=== PATIENT | female | born 1930 | race Caucasian/White ===

== ENCOUNTER 2017-02-04 18:22 | Inpatient (IN) | payer MEDICARE ==
--- NOTE | ~2017-02-04 | DS ---
Discharge Summary [facility] [address] [place]. [address] NAME: PRABHJOT SHELBY : 32 STATUS : DIS IN PAT#: [id number] AGE: 86 ADM/REG DATE : 02/05/17 MR#: [id number] REPORT SERV DATE: 02/13/17 DICTATED BY: YOUSIF FIELDS DATE: 02/12/17 REPORT STATUS : Draft TRANSCRIBED BY: MODL DATE: 02/12/17 ADMISSION DATE: 02/05/2017 DISCHARGE DATE: 02/12/2017 PROCEDURES DONE: 1. On 02/04/2017, chest x-ray: Shallow inspiration with mild central venous congestion. 2. On 02/05/2017, x-ray knee: One compartment moderate osteoarthritis of the left knee involving the medial femoral tibial compartment. Moderate left knee joint effusion. No evidence of osseous traumatic injury. 3. On 02/05/2017 2D echo: Normal left ventricular size and low normal ventricular systolic function, EF of 50%. Mild left ventricular diastolic dysfunction. Right ventricle mild decreased systolic function. Moderate pulmonary hypertension with estimated right ventricular systolic pressure of 54 mmHg. Moderate biatrial enlargement. Mild atrial and tricuspid regurg. 4. On 01/29/2017, x-ray of lumbar: Chronic severe compression fractures at T11 and L2 with moderate compression fracture at T9. No definitive acute traumatic injury to the lumbar spine. It is unclear if there is a true lower lumbar, neuroforaminal narrowing on the oblique views. 5. On 02/07/2017, chest x-ray PA and lateral: Interval development of bilateral pleural and bibasilar atelectasis in the right greater than the left. 6. On 02/09/2017 chest x-ray: Bibasilar atelectasis, right greater than left. Right pleural fluid. Stable cardiomegaly. 7. On 02/09/2017, ultrasound renal: Right hydronephrosis persists, similar apparent to 05/30/2016. Right renal cortical thinning appears somewhat. Cortical thinning in the left is mild in thickness or with ageing. CONSULTATIONS: 1. Shane Kim M.D., Ph.D, F.A.C.C., for Cardiology. 2. Trevon Fonseca M.D., for Renal. 3. Joseph Huggins DO, for Ortho-Spine. 4. Ofelia Pedersen M.D., for Orthopedics. REASON FOR ADMISSION: Rapid atrial fibrillation. Please refer to Dr. Alvarez's H and P on 02/04/2017. Please refer to interim discharge summary on 02/09/2017 by nurse practitioner, Rolly Shields. HISTORY OF HOSPITAL STAY: An 86-year-old white female with past medical history of coronary artery disease status post stent, atrial fibrillation on Xarelto, compression fracture at T11 and L2, hypertension, CHF with preserved ejection fraction, EF of 50%, history of breast cancer, right hydronephrosis, presenting with atrial fibrillation with RVR. Please refer to nurse practitioner, Rolly Shields's interim discharge dated 02/09/2017. I took over care of the patient on 02/10/2017 with a discharge on 02/12/2017. Discharge Summary [address] [address] NAME: PRABHJOT SHELBY : 32 STATUS : DIS IN PAT#: [id number] AGE: 86 ADM/REG DATE : 02/05/17 MR#: [id number] REPORT SERV DATE: 02/13/17 DICTATED BY: YOUSIF FIELDS DATE: 02/12/17 REPORT STATUS : Draft TRANSCRIBED BY: BAY DATE: 02/12/17 The patient was admitted because of the rapid atrial fibrillation with RVR. Cardiology was consulted which got the patient's heart rate well controlled. The patient was transitioned to p.o. Cardizem and beta pasuqale. Unfortunately, the patient also had a right knee pain which Dr. Pedersen was consulted for further evaluation and treatment. The patient did receive an x-ray of that right knee which was negative for any acute fractures. Orthopedics as well as conservative treatment will be better served at this time. In addition, the patient was also complaining of back pain. Ortho-Spine was consulted for further eval and treatment. Again, conservative treatment was pursued at this time. More importantly, the patient did develop acute kidney injury secondary to ATN with right congenital UPJ. Dr. Fonseca was consulted for further evaluation and treatment. The patient did have elevated creatinine at the time of admission. The patient had normal or at least near baseline creatinine of 1.44; however, the creatinine continued to increase to as high as 2.83 two days prior to discharge. Renal was consulted and basically the patient's renal function was increasing secondary to ATN. Renal felt the patient could be safely discharged since the patient's creatinine has been trending down from 2.83 down on 2.66 and 2.12 on the day of discharge. Renal did recommend the patient to follow up within one to two weeks time upon discharge. DISPOSITION: The patient is feeling fine, no complaints. ACTIVITY: As tolerated. DIET: Cardiac. INSTRUCTIONS UPON DISCHARGE: 1. The patient to follow up with Cardiology within one to two weeks time. 2. The patient to follow up with Renal within one to two weeks time. MEDICATIONS UPON DISCHARGE: 1. Calcium with vitamin D 600 mg p.o. b.i.d. 2. Cardizem 180 mg p.o. daily. 3. Docusate 100 mg p.o. b.i.d. 4. Lasix 80 mg daily. 5. Lidoderm topical patch daily. 6. Xarelto 50 mg p.o. daily. 7. Ambien 2.5 mg p.o. q.h.s. 8. Lactulose 30 mL p.o. q.h.s. 9. Protonix 40 mg daily. 10.Potassium chloride 10 mEq on Thursday and Thursday. 11.Tylenol 650 mg p.o. q.4 hours p.r.n. 12.[place] 5/325 mg one tablet p.o. q.8 hours p.r.n. 13.Maalox 30 mL p.o. q.4 hours p.r.n. 14.Bisacodyl 10 mg per rectal daily p.r.n. 15.Ativan 0.5 mg p.o. q.8 hours p.r.n. 16.Milk of magnesia 30 mL p.o. daily p.r.n. 17.Nitroglycerin sublingual 0.4 mg p.r.n. 18.Zofran 4 mg p.o. q.4 hours p.r.n. Discharge Summary [facility] [address] [place]. [address] NAME: PRABHJOT SHELBY : 32 STATUS : DIS IN [facility]#: [id number] AGE: 86 ADM/REG DATE : 02/05/17 MR#: [id number] REPORT SERV DATE: 02/13/17 DICTATED BY: YOUSIF FIELDS DATE: 02/12/17 REPORT STATUS : Draft TRANSCRIBED BY: MODSebastian DATE: 02/12/17 DIAGNOSES UPON DISCHARGE: 1. Atrial fibrillation with rapid ventricular response, rate controlled on Cardizem. 2. Acute kidney injury secondary to acute tubular necrosis with right congenital ureteropelvic junction. 3. Back pain secondary to chronic compression fractures. 4. Acute on chronic heart failure with diastolic dysfunction, ejection fraction of 50%. 5. Pulmonary hypertension. 6. Left knee pain and swelling secondary to osteoarthritis. 7. Chronic debility. 8. Hypertension. 9. History of breast cancer status post resection. PEYTON/BAY Yousif Fields MD / [id number] CC: MD Viral Mukherjee MD
--- NOTE | ~2017-02-04 | CN ---
Consultation Report [place] [id number] [facility] [place]. [address] NAME: PRABHJOT SHELBY : 32 STATUS : ADM IN PAT#: [id number] AGE: 86 ADM/REG DATE : 02/05/17 MR#: [id number] REPORT SERV DATE: 02/05/17 DICTATED BY: SHANE PAREDES DATE: 02/05/17 REPORT STATUS : Draft TRANSCRIBED BY: MODL DATE: 02/05/17 CARDIOLOGY CONSULTATION DATE OF CONSULTATION: INDICATION: An 86-year-old woman with atrial fibrillation. HISTORY OF PRESENT ILLNESS: Ms. Shelby is an 86-year-old woman who is followed by Dr. Summers in [place]. She recently was hospitalized with a GI bleed in [place]. She was transferred to [facility] for rehabilitation care. She has been there for several days and reportedly has had problems with elevated heart rate there that was difficult to control. They ordered a troponin level and it was elevated and centered in the emergency room. She denies chest pain or tightness. She has no palpitations or particular dyspnea. She has had problems with atrial fibrillation for more than five years. She has a history of peripheral vascular disease and coronary artery disease, which is relatively stable, also compression fractures. She has had no lightheadedness or syncope. She does have some intermittent swelling. REVIEW OF SYSTEMS: The review of systems is as per the history of present illness. 10 other systems are negative. PAST MEDICAL HISTORY: 1. History of recent GI bleed. 2. Abdominal aortic aneurysm, status post repair. 3. Peripheral vascular disease. 4. Atrial fibrillation, chronic. 5. Hypercholesterolemia. 6. Right bundle-branch block. 7. Coronary artery disease with reported history of cardiac stenting. FAMILY HISTORY: Positive for heart disease later in life. SOCIAL HISTORY: Remote tobacco. No alcohol. ALLERGIES: CONTRAST. HOME MEDICATIONS: 1. Acetaminophen. 2. Calcium. 3. Cardizem 60 p.o. q.6. 4. Cardizem CD 180 daily. 5. Cardizem 100 daily. 6. Lasix 80 in the morning and at bedtime. Consultation Report [place] [id number] [facility] [place]. [address] NAME: PRABHJOT SHELBY : 32 STATUS : ADM IN PAT#: [id number] AGE: 86 ADM/REG DATE : 02/05/17 MR#: [id number] REPORT SERV DATE: 02/05/17 DICTATED BY: SHANE PAREDES DATE: 02/05/17 REPORT STATUS : Draft TRANSCRIBED BY: BAY DATE: 02/05/17 7. [place]. 8. Lactulose. 9. Lidoderm. 10.Ativan. 11.Milk of magnesia. 12.Nitrostat. 13.Zofran. 14.Protonix. 15.Potassium. 16.Xarelto. 17.Ambien 5 daily. PHYSICAL EXAMINATION: VITAL SIGNS: Patient is afebrile. Heart rate is 120, blood pressure is 144/60. GENERAL: The patient is pleasant, elderly white female, in no apparent distress. HEENT: Conjunctivae are anicteric, no xanthelasma, lips without cyanosis. NECK: Supple, normal JVP, carotids +2 without bruit. LUNGS: Clear to auscultation bilaterally, no wheezes, rales or rhonchi. CARDIOVASCULAR: Irregularly irregular. Normal S1, S2. ABDOMEN: Soft, nontender, nondistended, with normal bowel sounds. No hepatomegaly. EXTREMITIES: Trace lower extremity edema. NEURO/PSYCH: Alert and oriented to person, place and time. No obvious neurologic deficits. Mood and affect normal. DATA: Troponin 0.06. Creatinine is 1.38. IMPRESSION: 1. Atrial fibrillation with elevated rate. 2. Demand ischemia. No anginal symptoms. 3. History of recent GI bleed. 4. Anemia with low platelets. 5. Peripheral vascular disease. 6. Abdominal aortic aneurysm, status post repair. 7. Hypertension. 8. Hypercholesterolemia. 9. Coronary artery disease with history of coronary stenting. RECOMMENDATIONS: Ms. Shelby presents with atrial fibrillation with elevated rate. I believe she probably is in chronic atrial fibrillation and suspect she has had some change in her medicines recently, which has allowed her heart rate to rise. We get her back on Cardizem and add a beta-pasquale. This combination is usually fairly helpful to for rate control. We will continue Xarelto and use gentle diuresis to help with some of the edema. I will follow up on the echo. Consultation Report [place] [address] [address] NAME: PRABHJOT SHELBY : 32 STATUS : ADM IN PAT#: [id number] AGE: 86 ADM/REG DATE : 02/05/17 MR#: [id number] REPORT SERV DATE: 02/05/17 DICTATED BY: SHANE PAREDES DATE: 02/05/17 REPORT STATUS : Draft TRANSCRIBED BY: MODSebastian DATE: 02/05/17 WO/MODL Shane Paredes M.D., Ph.D, F.A.C.C. / [id number] CC: Barry Oneill BRIAN SHANE
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
--- NOTE | ~2017-02-04 | CN ---
Consultation Report [facility] [address] [place] [place]. [address] NAME: PRABHJOT SHELBY : 32 STATUS : ADM IN PAT#: [id number] AGE: 86 ADM/REG DATE : 02/05/17 MR#: [id number] REPORT SERV DATE: 02/08/17 DICTATED BY: JAZ FONSECA DATE: 02/08/17 REPORT STATUS : Draft TRANSCRIBED BY: MODL DATE: 02/08/17 CONSULTATION DATE OF CONSULTATION: Patient of Dr. Cass Null. REASON FOR CONSULTATION: Elevation in BUN and creatinine. 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 Becerra in 06/2016, now with progressive declining kidney function, rise in creatinine during this admission, having presented with atrial fibrillation and CHF. She may have a component of ATN related to the CHF, but in addition, she also may have progression of her CKD in the setting of a solitary functioning left kidney with nephrosclerosis. In addition, she has been on a proton pump inhibitor and whether she has a component of interstitial nephritis, both acute versus acute on chronic. PLAN: Therefore 1. Repeat a renal ultrasound to assess for persistent obstruction in the right kidney. 2. We will hold her Lasix. 3. Stop her Protonix. Will switch to Pepcid. 4. Renal diet. 5. Check a serum protein electrophoresis. 6. Check a BNP and repeat her chest x-ray to assess the volume status. HISTORY: History is obtained from the patient and records available. A very pleasant 86- year-old female, who was initially admitted here on 02/04/2016, having been hospitalized at [facility] for evaluation of a GI bleed. She was undergoing rehabilitation at [facility] when she developed atrial fibrillation with a rapid rate. On reviewing her records from [facility], she was noted to have a creatinine of 1.2 to 1.3 dating back to 01/27/2017, and on 02/02/2017, it was 1.1. On admission here to the hospital, her creatinine had escalated to a value of 1.08 and is up to 2.62 today. She has previous creatinines of 1.37 in August of last year and 0.94 in June of last year. She came in with a significant lower limb edema and biventricular heart failure in relation to atrial fibrillation. She denies any difficulty in voiding. No history of hematuria or kidney stones or anti-inflammatory drug usage. She has a history of chronic right-sided hydronephrosis. She was evaluated by Dr. Mariam zaldivar in 06/2016 prior to having an AAA stented by Dr. Gibson in 08/2016. He did a cystoscopy and diagnosed her having congenital UPJ junction obstruction, and no intervention was performed. She does have atrophy of that right kidney. She has chronic right-sided flank pain as well, but otherwise, denies any fever, chills, or recurrent urinary tract infections. PAST MEDICAL HISTORY: Includes: Consultation Report [address] [place]. [address] NAME: PRABHJOT SHELBY : 32 STATUS : ADM IN [facility]#: [id number] AGE: 86 ADM/REG DATE : 02/05/17 MR#: [id number] REPORT SERV DATE: 02/08/17 DICTATED BY: JAZ FONSECA DATE: 02/08/17 REPORT STATUS : Draft TRANSCRIBED BY: BAY DATE: 02/08/17 1. T11 and L2 fracture. 2. Coronary artery disease with previous coronary artery stenting in [place]. 3. Atrial fibrillation, apparently diagnosed five and half years ago, paroxysmal. 4. GI bleed with colonic polyps, seen by Dr. Petersen in the past. 5. Hypertension. 6. Pneumonia. 7. Recurrent shingles. 8. Congestive heart failure. 9. History of breast cancer, post-resection, hydronephrosis as described, thrombocytopenia, and lymphedema. SURGICAL HISTORY: Includes the aneurysm repair and right hip surgery. She has had breast surgery for breast cancer as described. HOME MEDICATIONS: Medications prior to her transfer here included aluminum hydroxide, calcium with vitamin D, diltiazem, docusate, furosemide 80 and 40, hydrocodone, lidocaine, Ativan, nitroglycerin, Xarelto, Ambien, Protonix, and Zofran. SOCIAL HISTORY: She is not , single, good family support. Does not smoke cigarettes. No alcohol, medication, or street drug usage. REVIEW OF SYSTEMS: As per the HPI. PHYSICAL EXAMINATION: GENERAL: She is a very pleasant 86-year-old, in no acute distress. She is lying prone. VITAL SIGNS: Showed her to have a blood pressure of 112/57, heart rate is in the 70s, afebrile. She is mildly pale, but not jaundiced. Oral mucosa is moist. No pharyngitis. NECK: Supple. No thyromegaly. No carotid bruits heard. Oral mucosa is moist. No pharyngitis. NECK: Trachea central. No carotid bruits. No thyromegaly. No cervical adenopathy noted. LUNGS: Air entry is equal bilaterally. CHEST: Clear to auscultation. [place] beats not displaced. S1-S2. No rub. ABDOMEN: Mildly distended. No hepatosplenomegaly. No tenderness or rebound. Bowel sounds normal. NEUROLOGICAL: No gross neurological deficits. Cranial nerves are intact. Muscle bulk and tone are appropriate for age. No acute arthritic findings noted. She is oriented to time, place, and person. Affect is not depressed. EXTREMITIES: She has about 1+ peripheral edema, moving all limbs spontaneously. Peripheral pulses are present in dorsalis pedis and posterior tibial, but weak. IMAGING: Chest x-ray done here initially on 02/04/2017, showed shallow inspiration and mild venous congestion. She had another chest x-ray yesterday that showed interval development of bilateral pleural effusion and atelectasis. Consultation Report [address] [place]. [address] NAME: PRABHJOT SHELBY : 32 STATUS : ADM IN [facility]#: [id number] AGE: 86 ADM/REG DATE : 02/05/17 MR#: [id number] REPORT SERV DATE: 02/08/17 DICTATED BY: JAZ FONSECA DATE: 02/08/17 REPORT STATUS : Draft TRANSCRIBED BY: MODL DATE: 02/08/17 LABORATORY WORK: Sodium 139, potassium 5.0, chloride 105, CO2 25, BUN 72, creatinine 2.62. Magnesium is 2.5. Troponin 0.06. Hemoglobin is 9.0, hematocrit 29.3, white count is 4.6, and platelet count 136,000. She has all parameters to suggest that she may be iron deficient. We will check on iron stores, and urinalysis shows no proteinuria. MG/MODL Jaz Fonseca M.D. / [id number] CC: Barry Retana BRIAN SHANE
--- NOTE | ~2017-02-04 | HP ---
History And Physical [place] [address] [facility] [place]. [address] NAME: PRABHJOT SHELBY : 32 STATUS : ADM IN [facility]#: [id number] AGE: 86 ADM/REG DATE : 02/05/17 MR#: [id number] REPORT SERV DATE: 02/07/17 DICTATED BY: CHRISTAL PALACIOS DATE: 02/06/17 REPORT STATUS : Draft TRANSCRIBED BY: MODL DATE: 02/06/17 DATE OF ADMISSION: 02/05/2017 CHIEF COMPLAINT: Left knee pain. HISTORY: An 86-year-old female who has had increasing left knee pain for many years. First reported having trouble with this about 7 years ago. She has had her hip fixed for fracture in the past intermittently using the walker and cane and uses a walker when she is outside of her home, but does not use supportive device inside the home. Her walking has been getting less of late. ALLERGIES: IVP DYE, DIATRIZOATE. MEDICATIONS: See chart. PAST MEDICAL HISTORY: Hearing loss, cataract, heart cath 1980, abdominal aortic aneurysm, CHF, AFib, arthritis, osteopenia, anemia, breast cancer in 2000, left lumpectomy in 1999, hydronephrosis. PAST SURGICAL HISTORY: Right in 2009, left breast lumpectomy in 1999, heart cath with stent may be once , cystoscopy in 2015, colonoscopy in 2012. SOCIAL HISTORY: Quit tobacco and alcohol, or illicit drug use. FAMILY HISTORY: No known anesthetic complications. REVIEW OF SYSTEMS: As above. PHYSICAL EXAMINATION: GENERAL: She is alert, minimally emaciated, oriented, very talkative, somewhat difficult historian, afebrile. VITAL SIGNS: Stable. HEENT: Atraumatic, normocephalic. NECK: Supple. CHEST: Symmetric. LUNGS: Per Medicine evaluation. ABDOMEN: Soft. EXTREMITIES: Both upper extremities and right lower extremity without acute trauma. Left knee with mild to moderate effusion. Pain with range of motion from 0 to 90. Mild valgus. SKIN: Intact compartment supple. 2+ pulses. NEURO: Sensorimotor without deficit. X-RAY: Moderately severe lateral knee DJD and a nonweightbearing x-ray. History And Physical [facility] [address] [place]. [address] NAME: PRABHJOT SHELBY : 32 STATUS : ADM IN PAT#: [id number] AGE: 86 ADM/REG DATE : 02/05/17 MR#: [id number] REPORT SERV DATE: 02/07/17 DICTATED BY: CHRISTAL PALACIOS DATE: 02/06/17 REPORT STATUS : Draft TRANSCRIBED BY: BAY DATE: 02/06/17 ASSESSMENT: Left knee DJD, moderately severe. Multiple medical problems. PLAN: I had a lengthy discussion with her, a left knee support sleeve might help, physical therapy is okay with hospitalist . I will not use anti-inflammatory medication for history of GI bleed. She is also somewhat anticoagulated, and avoid the injection of her knee at this point. I am available if and when she becomes a candidate for more intervention. WTB/BAY Ofelia Palacios M.D. / [id number] CC: Cass Null M.D.
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
--- NOTE | ~2017-02-04 | IDS ---
Interim Discharge Summary [facility] [address] [place]. [address] NAME: PRABHJOT SHELBY : 32 STATUS : ADM IN [facility]#: [id number] AGE: 86 ADM/REG DATE : 02/05/17 MR#: [id number] REPORT SERV DATE: 02/09/17 DICTATED BY: ROLLY LEE DATE: 02/09/17 REPORT STATUS : Draft TRANSCRIBED BY: MODL DATE: 02/09/17 ADMISSION DATE: 02/05/2017 DISCHARGE DATE: INTERIM DIAGNOSES: List includes: 1. Atrial fibrillation with rapid ventricular response. 2. Acute kidney injury and acute tubular necrosis in the setting of a single functioning left kidney with right hydronephrosis and a congenital right UPJ obstruction. 3. Some mild hypotension, resolved. 4. Severe back pain, chronic compression fractures. 5. Acute diastolic heart failure, pulmonary hypertension, diastolic dysfunction. 6. Left knee effusion. 7. Nausea and vomiting, seems to have resolved. 8. Chronic debility. 9. History of abdominal aortic aneurysm repair. HISTORY OF PRESENT ILLNESS: This is a very pleasant, 86-year-old, white female, who actually had been in rehab at [facility] and given her rapid tachycardia, was transferred to [facility]. Please see initial H and P of Dr. Kuldeep Alvarez. This patient was admitted to Hospitalist Service for further evaluation and treatment. CONSULTS DURING THIS ADMISSION: Include: Cardiology, Dr. Kim; Orthopedic, Dr. Pedersen; [facility], Dr. Fonseca; and Ortho Spine, Dr. Huggins. TESTING AND IMAGING DURING THIS ADMISSION: Did include: An echocardiogram that showed an ejection fraction of 50%, mild left ventricular diastolic dysfunction, moderate biatrial enlargement, mild mitral and tricuspid regurg, moderate pulmonary hypertension. The patient also had a left knee x-ray that showed a moderate left knee joint effusion and some osteoarthritis. No acute fracture. Lumbar spine x-ray showing chronic severe compression fractures at T11 and L2, moderate compression fracture at T9, noted a tentative acute traumatic injury. CONTINUATION IN THE HOSPITAL COURSE: The patient's heart rate was controlled with the help of Cardiology, initially with a Cardizem IV drip and then transitioned to p.o. Cardizem and beta-pasquale therapy, which she has tolerated well. She had the above-described echocardiogram and further imaging testing. Physical Therapy evaluated the patient and determined returning to rehab was best suited for her as well. Although, her heart rate did begin to improve and maintain some stability. She did have an increase in her creatinine and acute kidney injury, and her creatinine continued to climb despite some adjustments in her diuretics. Consultations were placed to Nephrology who ordered a renal ultrasound that did show some right hydronephrosis persisting similar to prior ultrasound in 05/2016 and some cortical thinning on the left is mild, left kidney. The patient continued to complain of back pain that was rather persistent and requested to see Dr. Huggins, whom she had seen as an outpatient and x-ray of the back as described above was performed. Dr. Huggins saw the patient in consultation, but the patient did not wish to pursue getting an MRI at this time, and this will continue with Physical Therapy. Hopefully, her kidney function will plateau Interim Discharge Summary [address] [address] NAME: PRABHJOT SHELBY : 32 STATUS : ADM IN PAT#: [id number] AGE: 86 ADM/REG DATE : 02/05/17 MR#: [id number] REPORT SERV DATE: 02/09/17 DICTATED BY: ROLLY LEE DATE: 02/09/17 REPORT STATUS : Draft TRANSCRIBED BY: BAY DATE: 02/09/17 and improve as we are continuing to follow her lab work. DISPOSITION: Current disposition is to return to [facility] and they are currently following the patient. I appreciate the help of the consultants on this patient's hospital stay. ZAYRA/BAY Rolly Lee NP / [id number] CC: Barry Retana Brain Shane
[2017-02-04 16:55] LABS: BASOPHILS 0.7 %; BASOPHILS ABSOLUTE 0.04 10/3/uL (0.0-0.16); EOSINOPHILS 7.6 %; EOSINOPHILS ABSOLUTE 0.41 10/3/uL (0.0-0.53); HEMATOCRIT 30.2 % (36.0-48.0); HEMOGLOBIN 9.3 g/dL (12.0-16.0); IMMATURE GRANULOCYTES 0.2 %; IMMATURE GRANULOCYTES ABSOLUTE 0.01 10/3/uL (0.0-0.11); LYMPHOCYTES 15.7 %; LYMPHOCYTES ABSOLUTE 0.84 10/3/uL (0.67-4.30); MEAN CORPUS HGB CONC 30.8 g/dL (32.0-36.0); MEAN CORPUSCULAR HEMOGLOB 25.9 pg (26.0-34.0); MEAN CORPUSCULAR VOLUME 84.1 fL (80-100); MEAN PLATELET VOLUME 10.9 fL (9.2-13.0); MONOCYTES ABSOLUTE 0.86 10/3/uL (0.21-1.20); NEUTROPHILS 59.8 %; PLATELET COUNT 126 10/3/uL (150-400); RBC DISTRIBUTION WIDTH 17.8 % (12.0-16.0); RED CELL COUNT 3.59 10/6/uL (4.0-5.6); WHITE BLOOD CELLS 5.4 10/3/uL (4.5-10.5)
[2017-02-04 16:56] LABS: MANUAL DIFF NO %
[2017-02-04 17:02] LABS: PARTIAL THROMBO TIME 33.7 SEC (22.5-37.2)
[2017-02-04 17:08] LABS: PROTIME (NOT ORD) 22.8 SEC (12.0-14.5)
[2017-02-04 17:11] LABS: CALCIUM, SERUM 8.6 MG/DL (8.5-10.4); CHLORIDE, SERUM 105 MMOL/L (96-112); CO2 (CARBON DIOXIDE) 27 MMOL/L (24-34); CREATININE 1.44 MG/DL (0.55-1.02); GFR AFRICAN AMERICAN 39 ML/MIN (>=60); GFR NON AFRICAN AMERICAN 33 ML/MIN (>=60); POTASSIUM, SERUM 4.2 MMOL/L (3.5-5.3); SODIUM, SERUM 143 MMOL/L (135-148)
[2017-02-04 17:13] LABS: BUN (BLOOD UREA NITROGEN) 42 MG/DL (6-23); CHEST PAIN PROFILE TAT 0 Hrs 22 Mins; GLUCOSE, SERUM 106 MG/DL (60-99); TROPONIN I 0.06 NG/ML (<0.05)
[~2017-02-04 18:22] MED LIST: AMITIZA8 MCG PO; C25 PO; CARDIZEM LA120 MG PO; CARTIA XT180 MG/24 PO; DULERA; DULERA INH; L40 PO; LIPITOR40 PO; PCET PO
[2017-02-04] MEDS ORDERED: CARD60 PO (21:11)
[2017-02-04] MEDS ORDERED: CARDCD180 PO (21:11)
[2017-02-04] MEDS ORDERED: D.O.S.100 MG PO (21:12)
[2017-02-04] MEDS ORDERED: L80 PO (21:12)
[2017-02-04] MEDS ORDERED: L40 PO (21:12)
[2017-02-04] MEDS ORDERED: LIDODERM TOP (21:13)
[2017-02-04] MEDS ORDERED: CONSTULOSE PO (21:13)
[2017-02-04] MEDS ORDERED: KDUR10 PO (21:14)
[2017-02-04] MEDS ORDERED: PROTONIX PO (21:14)
[2017-02-04] MEDS ORDERED: XARELTO15 MG PO (21:15)
[2017-02-04] MEDS ORDERED: AMB5 PO (21:15)
[2017-02-04] MEDS ORDERED: 8 HOUR650 MG PO (21:16)
[2017-02-04] MEDS ORDERED: NORCO1 TA1 PO (21:16)
[2017-02-04] MEDS ORDERED: MAALOX PO (21:17)
[2017-02-04] MEDS ORDERED: BISR PR (21:17)
[2017-02-04] MEDS ORDERED: ATV.5 PO (21:18)
[2017-02-04] MEDS ORDERED: MOMUD PO (21:18)
[2017-02-04] MEDS ORDERED: NITROSTAT0.4 MG SL (21:18)
[2017-02-04] MEDS ORDERED: ZOFRAN4 PO (21:19)
[2017-02-04] MEDS ORDERED: CALTRA600D PO (21:19)
[2017-02-05 06:19] LABS: BASOPHILS 0.6 %; BASOPHILS ABSOLUTE 0.03 10/3/uL (0.0-0.16); EOSINOPHILS 8.3 %; EOSINOPHILS ABSOLUTE 0.41 10/3/uL (0.0-0.53); HEMATOCRIT 29.9 % (36.0-48.0); IMMATURE GRANULOCYTES 0.4 %; IMMATURE GRANULOCYTES ABSOLUTE 0.02 10/3/uL (0.0-0.11); LYMPHOCYTES 15.2 %; LYMPHOCYTES ABSOLUTE 0.75 10/3/uL (0.67-4.30); MEAN CORPUS HGB CONC 30.1 g/dL (32.0-36.0); MEAN CORPUSCULAR HEMOGLOB 25.4 pg (26.0-34.0); MEAN CORPUSCULAR VOLUME 84.5 fL (80-100); MEAN PLATELET VOLUME 10.7 fL (9.2-13.0); MONOCYTES ABSOLUTE 0.74 10/3/uL (0.21-1.20); NEUTROPHILS 60.5 %; NEUTROPHILS ABSOLUTE 2.97 10/3/uL (2.02-8.40); PLATELET COUNT 125 10/3/uL (150-400); RBC DISTRIBUTION WIDTH 17.8 % (12.0-16.0); RED CELL COUNT 3.54 10/6/uL (4.0-5.6); WHITE BLOOD CELLS 4.9 10/3/uL (4.5-10.5)
[2017-02-05 06:22] LABS: MANUAL DIFF NO %
[2017-02-05 06:30] LABS: INTERNATIONAL NORMAL RATI 1.6 UNITS (-); PARTIAL THROMBO TIME 31.8 SEC (22.5-37.2)
[2017-02-05 06:31] LABS: PROTIME (NOT ORD) 19.1 SEC (12.0-14.5)
[2017-02-05 06:36] LABS: A/G RATIO 0.7 (0.7-1.9); ALBUMIN 2.6 G/DL (3.5-5.0); BUN (BLOOD UREA NITROGEN) 43 MG/DL (6-23); CALCIUM, SERUM 8.7 MG/DL (8.5-10.4); CHLORIDE, SERUM 108 MMOL/L (96-112); CO2 (CARBON DIOXIDE) 28 MMOL/L (24-34); CREATININE 1.38 MG/DL (0.55-1.02); GFR AFRICAN AMERICAN 41 ML/MIN (>=60); GFR NON AFRICAN AMERICAN 35 ML/MIN (>=60); GLOBULIN 3.7 G/DL (2.5-4.1); GLUCOSE, SERUM 92 MG/DL (60-99); POTASSIUM, SERUM 3.8 MMOL/L (3.5-5.3); SGOT(AST) 29 U/L (5-40); SGPT(ALT) 23 U/L (5-65); SODIUM, SERUM 146 MMOL/L (135-148); TOTAL BILIRUBIN 0.4 MG/DL (0-1.2); TOTAL PROTEIN 6.3 G/DL (6.0-8.5)
[2017-02-05 06:38] LABS: ALKALINE PHOSPHATASE 73 U/L (45-117); TROPONIN I 0.06 NG/ML (<0.05)
[2017-02-05 06:43] LABS: PREALBUMIN 12.8 MG/DL (17.0-43.0)
[2017-02-05 06:50] LABS: ANISOCYTOSIS 1+ (5-10/OIF) (0-5/OIF); GIANT PLATELET FEW; PLATELET ESTIMATE DEC (ADEQUATE); RBC MORPHOLOGY ABN (NORMAL)
[2017-02-05 07:22] LABS: PROCALCITONIN 0.09 ng/mL (<0.5)
[2017-02-06 05:07] LABS: BASOPHILS 0.4 %; BASOPHILS ABSOLUTE 0.02 10/3/uL (0.0-0.16); EOSINOPHILS 2.4 %; EOSINOPHILS ABSOLUTE 0.11 10/3/uL (0.0-0.53); HEMATOCRIT 30.3 % (36.0-48.0); HEMOGLOBIN 9.1 g/dL (12.0-16.0); IMMATURE GRANULOCYTES 0.2 %; IMMATURE GRANULOCYTES ABSOLUTE 0.01 10/3/uL (0.0-0.11); LYMPHOCYTES 18.8 %; LYMPHOCYTES ABSOLUTE 0.85 10/3/uL (0.67-4.30); MEAN CORPUSCULAR HEMOGLOB 25.3 pg (26.0-34.0); MEAN CORPUSCULAR VOLUME 84.2 fL (80-100); MEAN PLATELET VOLUME 10.7 fL (9.2-13.0); MONOCYTES ABSOLUTE 0.77 10/3/uL (0.21-1.20); NEUTROPHILS 61.2 %; NEUTROPHILS ABSOLUTE 2.77 10/3/uL (2.02-8.40); PLATELET COUNT 116 10/3/uL (150-400); RBC DISTRIBUTION WIDTH 17.8 % (12.0-16.0); WHITE BLOOD CELLS 4.5 10/3/uL (4.5-10.5)
[2017-02-06 05:18] LABS: CALCIUM, SERUM 8.7 MG/DL (8.5-10.4); CHLORIDE, SERUM 105 MMOL/L (96-112); CO2 (CARBON DIOXIDE) 28 MMOL/L (24-34); CREATININE 1.82 MG/DL (0.55-1.02); GFR AFRICAN AMERICAN 29 ML/MIN (>=60); GFR NON AFRICAN AMERICAN 25 ML/MIN (>=60); GLUCOSE, SERUM 103 MG/DL (60-99); POTASSIUM, SERUM 3.8 MMOL/L (3.5-5.3); SODIUM, SERUM 142 MMOL/L (135-148)
[2017-02-06 05:19] LABS: MANUAL DIFF NO %
[2017-02-06 05:43] LABS: BUN (BLOOD UREA NITROGEN) 49 MG/DL (6-23)
[2017-02-06 05:47] LABS: ANISOCYTOSIS 1+ (5-10/OIF) (0-5/OIF); PLATELET ESTIMATE DEC (ADEQUATE)
[2017-02-06 05:48] LABS: TEARDROP SHAPED RBCS OCC (0-2/OIF)
[2017-02-07 06:43] LABS: BUN (BLOOD UREA NITROGEN) 59 MG/DL (6-23); CALCIUM, SERUM 8.5 MG/DL (8.5-10.4); CHLORIDE, SERUM 105 MMOL/L (96-112); CO2 (CARBON DIOXIDE) 27 MMOL/L (24-34); CREATININE 2.35 MG/DL (0.55-1.02); GFR AFRICAN AMERICAN 21 ML/MIN (>=60); GFR NON AFRICAN AMERICAN 18 ML/MIN (>=60); GLUCOSE, SERUM 89 MG/DL (60-99); POTASSIUM, SERUM 4.8 MMOL/L (3.5-5.3); SODIUM, SERUM 141 MMOL/L (135-148)
[2017-02-07 07:00] LABS: BASOPHILS 0.7 %; BASOPHILS ABSOLUTE 0.03 10/3/uL (0.0-0.16); EOSINOPHILS 3.8 %; EOSINOPHILS ABSOLUTE 0.16 10/3/uL (0.0-0.53); HEMATOCRIT 30.7 % (36.0-48.0); HEMOGLOBIN 9.1 g/dL (12.0-16.0); IMMATURE GRANULOCYTES 0.5 %; IMMATURE GRANULOCYTES ABSOLUTE 0.02 10/3/uL (0.0-0.11); LYMPHOCYTES 20.4 %; LYMPHOCYTES ABSOLUTE 0.86 10/3/uL (0.67-4.30); MEAN CORPUS HGB CONC 29.6 g/dL (32.0-36.0); MEAN CORPUSCULAR HEMOGLOB 25.2 pg (26.0-34.0); MEAN PLATELET VOLUME 11.7 fL (9.2-13.0); MONOCYTES 15.2 %; MONOCYTES ABSOLUTE 0.64 10/3/uL (0.21-1.20); NEUTROPHILS 59.4 %; PLATELET COUNT 129 10/3/uL (150-400); RBC DISTRIBUTION WIDTH 17.9 % (12.0-16.0); RED CELL COUNT 3.61 10/6/uL (4.0-5.6); WHITE BLOOD CELLS 4.2 10/3/uL (4.5-10.5)
[2017-02-07 07:06] LABS: MANUAL DIFF NO %
[2017-02-07 07:21] LABS: ANISOCYTOSIS 1+ (5-10/OIF) (0-5/OIF); HYPOCHROMIA 1+ (3-10/OIF) (0-2/OIF); PLATELET ESTIMATE SLT DEC (ADEQUATE)
[2017-02-07 12:14] LABS: ASCORBIC ACID (UR NOT ORDER) NEG (NEG); BILIRUBIN, URINE NEGATIVE (NEG); KETONE, URINE NEGATIVE (NEG); LEUKOCYTE ESTERASE(NOT OR NEG (NEG); WBC (NOT ORDERED) (RFLEX) 2 (0-5)
[2017-02-08 04:30] LABS: BASOPHILS 1.1 %; BASOPHILS ABSOLUTE 0.05 10/3/uL (0.0-0.16); EOSINOPHILS 4.3 %; HEMATOCRIT 29.3 % (36.0-48.0); IMMATURE GRANULOCYTES 0.9 %; IMMATURE GRANULOCYTES ABSOLUTE 0.04 10/3/uL (0.0-0.11); LYMPHOCYTES 23.5 %; LYMPHOCYTES ABSOLUTE 1.09 10/3/uL (0.67-4.30); MEAN CORPUS HGB CONC 30.7 g/dL (32.0-36.0); MEAN CORPUSCULAR HEMOGLOB 25.9 pg (26.0-34.0); MEAN CORPUSCULAR VOLUME 84.4 fL (80-100); MEAN PLATELET VOLUME 10.4 fL (9.2-13.0); MONOCYTES 16.6 %; MONOCYTES ABSOLUTE 0.77 10/3/uL (0.21-1.20); NEUTROPHILS 53.6 %; NEUTROPHILS ABSOLUTE 2.48 10/3/uL (2.02-8.40); PLATELET COUNT 136 10/3/uL (150-400); RBC DISTRIBUTION WIDTH 18.2 % (12.0-16.0); RED CELL COUNT 3.47 10/6/uL (4.0-5.6); WHITE BLOOD CELLS 4.6 10/3/uL (4.5-10.5)
[2017-02-08 04:31] LABS: MANUAL DIFF NO %
[2017-02-08 04:38] LABS: CALCIUM, SERUM 8.8 MG/DL (8.5-10.4); CHLORIDE, SERUM 105 MMOL/L (96-112); CO2 (CARBON DIOXIDE) 25 MMOL/L (24-34); CREATININE 2.62 MG/DL (0.55-1.02); GFR AFRICAN AMERICAN 19 ML/MIN (>=60); GFR NON AFRICAN AMERICAN 16 ML/MIN (>=60); SODIUM, SERUM 139 MMOL/L (135-148)
[2017-02-08 04:39] LABS: BUN (BLOOD UREA NITROGEN) 72 MG/DL (6-23); GLUCOSE, SERUM 109 MG/DL (60-99); POTASSIUM, SERUM 5.4 MMOL/L (3.5-5.3)
[2017-02-08 05:03] LABS: ANISOCYTOSIS 1+ (5-10/OIF) (0-5/OIF)
[2017-02-08 05:04] LABS: PLATELET ESTIMATE SLT DEC (ADEQUATE)
[2017-02-08 05:05] LABS: RBC MORPHOLOGY ABN (NORMAL)
[2017-02-09 06:14] LABS: T PROTEIN (ELECT)(NOT OR 6.4 G/DL (6.0-8.5)
[2017-02-09 06:16] LABS: INTERNATIONAL NORMAL RATI 3.9 UNITS (-)
[2017-02-09 06:18] LABS: PROTIME (NOT ORD) 37.7 SEC (12.0-14.5)
[2017-02-09 06:20] LABS: BASOPHILS 0.9 %; BASOPHILS ABSOLUTE 0.04 10/3/uL (0.0-0.16); EOSINOPHILS 3.6 %; EOSINOPHILS ABSOLUTE 0.16 10/3/uL (0.0-0.53); HEMATOCRIT 30.4 % (36.0-48.0); HEMOGLOBIN 8.9 g/dL (12.0-16.0); IMMATURE GRANULOCYTES 0.7 %; IMMATURE GRANULOCYTES ABSOLUTE 0.03 10/3/uL (0.0-0.11); LYMPHOCYTES 10.9 %; LYMPHOCYTES ABSOLUTE 0.48 10/3/uL (0.67-4.30); MANUAL DIFF NO %; MEAN CORPUS HGB CONC 29.3 g/dL (32.0-36.0); MEAN CORPUSCULAR HEMOGLOB 24.8 pg (26.0-34.0); MEAN CORPUSCULAR VOLUME 84.7 fL (80-100); MEAN PLATELET VOLUME 11.4 fL (9.2-13.0); MONOCYTES 12.5 %; MONOCYTES ABSOLUTE 0.55 10/3/uL (0.21-1.20); NEUTROPHILS 71.4 %; NEUTROPHILS ABSOLUTE 3.13 10/3/uL (2.02-8.40); NUCLEATED RED BLOOD CELLS 1.2 /100WBC (0-0); PLATELET COUNT 151 10/3/uL (150-400); RBC DISTRIBUTION WIDTH 17.8 % (12.0-16.0); RED CELL COUNT 3.59 10/6/uL (4.0-5.6); WHITE BLOOD CELLS 4.4 10/3/uL (4.5-10.5)
[2017-02-09 06:39] LABS: PLATELET ESTIMATE SLT DEC (ADEQUATE)
[2017-02-09 06:40] LABS: BURR CELLS 1+ (3-10/OIF) (0-2/OIF); SCHISTOCYTES OCC (0-2/OIF); TEARDROP SHAPED RBCS OCC (0-2/OIF)
[2017-02-09 06:49] LABS: ALBUMIN 2.9 G/DL (3.5-5.0); ALKALINE PHOSPHATASE 72 U/L (45-117); CALCIUM, SERUM 8.9 MG/DL (8.5-10.4); CHLORIDE, SERUM 106 MMOL/L (96-112); CO2 (CARBON DIOXIDE) 22 MMOL/L (24-34); CREATININE 2.79 MG/DL (0.55-1.02); DIRECT BILIRUBIN 0.2 MG/DL (0.0-0.4); FERRITIN 17 NG/ML (8-252); GFR AFRICAN AMERICAN 17 ML/MIN (>=60); GFR NON AFRICAN AMERICAN 15 ML/MIN (>=60); GLUCOSE, SERUM 100 MG/DL (60-99); INDIRECT BILIRUBIN(NOT ORDER) 0.2 MG/DL (0.1-0.9); IRON BINDING CAPACITY 448 MCG/DL (225-410); IRON, SERUM 18 MCG/DL (35-150); POTASSIUM, SERUM 5.2 MMOL/L (3.5-5.3); SGOT(AST) 57 U/L (5-40); SGPT(ALT) 43 U/L (5-65); SODIUM, SERUM 140 MMOL/L (135-148); TOTAL BILIRUBIN 0.4 MG/DL (0-1.2); TOTAL PROTEIN 6.6 G/DL (6.0-8.5)
[2017-02-09 06:53] LABS: BUN (BLOOD UREA NITROGEN) 79 MG/DL (6-23); FOLATE 55.5 NG/ML (>5.2); PHOSPHORUS, SERUM 5.7 MG/DL (2.5-4.5)
[2017-02-09 07:21] LABS: ASCORBIC ACID (UR NOT ORDER) NEG (NEG); BILIRUBIN, URINE NEGATIVE (NEG); KETONE, URINE NEGATIVE (NEG); LEUKOCYTE ESTERASE(NOT OR NEG (NEG); WBC (NOT ORDERED) (RFLEX) 2 (0-5)
[2017-02-09 12:48] LABS: ALB RELATIVE % 52.3 % (60.0-89.0); ALBUMIN (ELECTRO) 3.35 GM/DL (3.2-5.5); ALPHA 1 (ELECTRO) 0.36 GM/DL (0.1-0.4); ALPHA 1 RELAT % (NOT ORD) 5.6 % (1.0-4.0); ALPHA 2 (ELECTRO) 0.82 GM/DL (0.5-1.10); ALPHA 2 RELAT % 12.8 % (4.5-26.0); BETA GLOBULIN (SPE) 0.81 GM/DL (0.60-1.30); BETA RELATIVE % 12.6 % (9.0-22.0); GAMMA GLOBULIN (SPE) 1.07 G/DL (0.70-1.60); GAMMA RELAT % 16.7 % (6.0-22.0)
[2017-02-10 06:34] LABS: ALBUMIN 2.8 G/DL (3.5-5.0); BUN (BLOOD UREA NITROGEN) 87 MG/DL (6-23); CALCIUM, SERUM 8.7 MG/DL (8.5-10.4); CHLORIDE, SERUM 107 MMOL/L (96-112); CO2 (CARBON DIOXIDE) 20 MMOL/L (24-34); CREATININE 2.83 MG/DL (0.55-1.02); GFR AFRICAN AMERICAN 17 ML/MIN (>=60); GFR NON AFRICAN AMERICAN 15 ML/MIN (>=60); GLUCOSE, SERUM 86 MG/DL (60-99); PHOSPHORUS, SERUM 5.1 MG/DL (2.5-4.5); POTASSIUM, SERUM 4.8 MMOL/L (3.5-5.3); SODIUM, SERUM 139 MMOL/L (135-148)
[2017-02-10 06:50] LABS: BASOPHILS 1.1 %; BASOPHILS ABSOLUTE 0.05 10/3/uL (0.0-0.16); EOSINOPHILS 3.2 %; EOSINOPHILS ABSOLUTE 0.15 10/3/uL (0.0-0.53); HEMATOCRIT 28.3 % (36.0-48.0); HEMOGLOBIN 8.3 g/dL (12.0-16.0); IMMATURE GRANULOCYTES 0.4 %; IMMATURE GRANULOCYTES ABSOLUTE 0.02 10/3/uL (0.0-0.11); LYMPHOCYTES 9.2 %; LYMPHOCYTES ABSOLUTE 0.43 10/3/uL (0.67-4.30); MANUAL DIFF NO %; MEAN CORPUS HGB CONC 29.3 g/dL (32.0-36.0); MEAN CORPUSCULAR HEMOGLOB 24.6 pg (26.0-34.0); MEAN PLATELET VOLUME 11.4 fL (9.2-13.0); MONOCYTES 15.8 %; MONOCYTES ABSOLUTE 0.74 10/3/uL (0.21-1.20); NEUTROPHILS 70.3 %; NEUTROPHILS ABSOLUTE 3.29 10/3/uL (2.02-8.40); NUCLEATED RED BLOOD CELLS 2.6 /100WBC (0-0); PLATELET COUNT 152 10/3/uL (150-400); RBC DISTRIBUTION WIDTH 18.1 % (12.0-16.0); RED CELL COUNT 3.37 10/6/uL (4.0-5.6); WHITE BLOOD CELLS 4.7 10/3/uL (4.5-10.5)
[2017-02-10 07:28] LABS: ANISOCYTOSIS 1+ (5-10/OIF) (0-5/OIF); HYPOCHROMIA 1+ (3-10/OIF) (0-2/OIF); MICROCYTES 1+ (5-10/OIF) (0-5/OIF); PLATELET ESTIMATE ADQ (ADEQUATE); POLYCHROMASIA 1+ (2-5/OIF) (0-1/OIF)
[2017-02-11 04:12] LABS: BASOPHILS 0.8 %; BASOPHILS ABSOLUTE 0.04 10/3/uL (0.0-0.16); EOSINOPHILS 5.4 %; EOSINOPHILS ABSOLUTE 0.27 10/3/uL (0.0-0.53); HEMATOCRIT 29.8 % (36.0-48.0); HEMOGLOBIN 8.6 g/dL (12.0-16.0); IMMATURE GRANULOCYTES 0.6 %; IMMATURE GRANULOCYTES ABSOLUTE 0.03 10/3/uL (0.0-0.11); LYMPHOCYTES 16.9 %; LYMPHOCYTES ABSOLUTE 0.85 10/3/uL (0.67-4.30); MEAN CORPUS HGB CONC 28.9 g/dL (32.0-36.0); MEAN CORPUSCULAR HEMOGLOB 24.3 pg (26.0-34.0); MEAN CORPUSCULAR VOLUME 84.2 fL (80-100); MONOCYTES 18.7 %; MONOCYTES ABSOLUTE 0.94 10/3/uL (0.21-1.20); NEUTROPHILS 57.6 %; NUCLEATED RED BLOOD CELLS 2.7 /100WBC (0-0); PLATELET COUNT 152 10/3/uL (150-400); RBC DISTRIBUTION WIDTH 17.9 % (12.0-16.0); RED CELL COUNT 3.54 10/6/uL (4.0-5.6)
[2017-02-11 04:13] LABS: MANUAL DIFF NO %
[2017-02-11 04:14] LABS: ANISOCYTOSIS 1+ (5-10/OIF) (0-5/OIF); BUN (BLOOD UREA NITROGEN) 93 MG/DL (6-23); CALCIUM, SERUM 9.1 MG/DL (8.5-10.4); CHLORIDE, SERUM 105 MMOL/L (96-112); CO2 (CARBON DIOXIDE) 26 MMOL/L (24-34); CREATININE 2.66 MG/DL (0.55-1.02); GFR AFRICAN AMERICAN 18 ML/MIN (>=60); GFR NON AFRICAN AMERICAN 16 ML/MIN (>=60); GLUCOSE, SERUM 104 MG/DL (60-99); HYPOCHROMIA 1+ (3-10/OIF) (0-2/OIF); PLATELET ESTIMATE ADQ (ADEQUATE); POTASSIUM, SERUM 4.4 MMOL/L (3.5-5.3); SODIUM, SERUM 138 MMOL/L (135-148)
[2017-02-11 04:15] LABS: ELLIPTOCYTES 1+ (3-10/OIF) (0-2/OIF); SCHISTOCYTES FEW (3-10/OIF)
[2017-02-12 04:50] LABS: ALBUMIN 2.9 G/DL (3.5-5.0); CALCIUM, SERUM 9.1 MG/DL (8.5-10.4); CHLORIDE, SERUM 108 MMOL/L (96-112); CO2 (CARBON DIOXIDE) 23 MMOL/L (24-34); GFR AFRICAN AMERICAN 24 ML/MIN (>=60); GFR NON AFRICAN AMERICAN 21 ML/MIN (>=60); GLUCOSE, SERUM 92 MG/DL (60-99); PHOSPHORUS, SERUM 4.2 MG/DL (2.5-4.5); POTASSIUM, SERUM 4.3 MMOL/L (3.5-5.3); SODIUM, SERUM 141 MMOL/L (135-148)
[2017-02-12 04:51] LABS: BUN (BLOOD UREA NITROGEN) 83 MG/DL (6-23); CREATININE 2.12 MG/DL (0.55-1.02)
== END 2017-02-12 16:27 | DRG 308 ==
LOC: ER 18:22 → CDU1 20:39 → CDU2 22:37 → 7NO 02-06 14:45
PROVIDERS: Emergency Medicine; Hospitalist; Internal Medicine; Internal Medicine Nephrology; Nurse Practitioner; Nurse Practitioner Family
DX: I48.91 Unspecified atrial fibrillation (principal); N17.0 Acute kidney failure with tubular necrosis; I50.33 Acute on chronic diastolic (congestive) heart failure; D69.6 Thrombocytopenia, unspecified; I27.2 Other secondary pulmonary hypertension; N13.30 Unspecified hydronephrosis; Q62.39 Other obstructive defects of renal pelvis and ureter; I25.10 Atherosclerotic heart disease of native coronary artery without angina pectoris; I89.0 Lymphedema, not elsewhere classified; I11.0 Hypertensive heart disease with heart failure; M17.12 Unilateral primary osteoarthritis, left knee; S32.029S Unspecified fracture of second lumbar vertebra, sequela; S22.079S Unspecified fracture of T9-T10 vertebra, sequela; S22.089S Unspecified fracture of T11-T12 vertebra, sequela; V00-Y99 External causes of morbidity; Z79.01 Long term (current) use of anticoagulants; Z86.010 Personal history of colon polyps; Z85.3 Personal history of malignant neoplasm of breast; Z95.5 Presence of coronary angioplasty implant and graft; F17.210 Nicotine dependence, cigarettes, uncomplicated; I45.10 Unspecified right bundle-branch block; D64.9 Anemia, unspecified
CPT/HCPCS: 71010; 71020; 72100; 73560-LT; 76775; 80048; 80053; 80069; 80076; 81001; 82570; 82607; 82728; 82746; 83540; 83550; 83735; 83880; 84132; 84134; 84145; 84155; 84165; 84300; 84443; 84484; 84550; 85025; 85610; 85730; 93005; 93306; 96374; 97110-GP; 97116-GP; 97161-GP; 97165-GO; 97530-GP; 97535-GO; 99285; A9270-GY; G8978-CK-GP; G8979-CJ-GP; G8987-CK-GO; G8988-CJ-GO; J2405

== ENCOUNTER 2017-02-14 11:38 | Inpatient (IN) | payer MEDICARE ==
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
--- NOTE | ~2017-02-14 | DS ---
Discharge Summary [facility] [address] [place]. [address] NAME: PRABHJOT SHELBY : 32 STATUS : DIS IN PAT#: [id number] AGE: 86 ADM/REG DATE : 02/14/17 MR#: [id number] REPORT SERV DATE: 02/19/17 DICTATED BY: YOUSIF COTTO DATE: 02/18/17 REPORT STATUS : Draft TRANSCRIBED BY: MODL DATE: 02/18/17 ADMISSION DATE: 02/14/2017 DISCHARGE DATE: 02/18/2017 PROCEDURES DONE: On 02/14/2017, chest x-ray: Suspect posterior right basilar opacities possibly representing diaphragmatic hernia or pleural-based opacity. Stable mild cardiomegaly with mild pulmonary venous congestion. REASON FOR ADMISSION: Anemia. HOSPITAL COURSE: An 86-year-old white female with past medical history of AFib on Xarelto; chronic kidney disease, stage 3; back pain, on opiates; CHF with preserved ejection fraction of 50%; hypertension; pulmonary hypertension; chronic debility presenting with anemia of unknown duration. The patient was initially discharged from the hospital secondary to AFib with RVR on 02/14/2017. She was sent to [facility], unfortunately the patient had a fall and was noted that the patient had a hemoglobin of 5. At arrival in the ER for further evaluation, the patient's hemoglobin was 6.5. Initial workup for occult blood was negative. Subsequently, the patient was transferred to the floor and was given 4 units of packed RBC as well as 2 units of FFP to correct for the anemia. The patient had to be given FFP due to the patient taking Xarelto. Eventually, the patient's H and H has been stabilized. More importantly, the occult blood test was negative x3. At this time, there is no source identifiable as to the cause of the patient's anemia. Nonetheless, the patient has been doing well as far as her debility. The patient was able to mobilize with physical therapy. Furthermore, the patient was concerned about Xarelto. The patient would like to revisit her taking Xarelto with her primary care physician. Apparently, the patient was the one who wanted to take Xarelto in the first place. The patient was previously taking Coumadin. However, she was having difficulty establishing a stable INR and was told frequently to change her doses which made the patient very frustrated. Therefore, she switched to Xarelto for the ease of use. Unfortunately with her recent development of anemia, the patient is rethinking the use of Xarelto. Therefore, the patient would like to talk with her primary care physician regarding restarting Xarelto. DISPOSITION: The patient is feeling fine, no complaint. ACTIVITY: As tolerated. DIET: Cardiac. DISCHARGE INSTRUCTIONS: The patient is to follow up with primary care physician in one to two weeks' time. DISCHARGE MEDICATIONS: 1. Calcium 600 mg p.o. b.i.d. 2. Cartia XT 180 mg p.o. daily. 3. Colace 100 mg p.o. b.i.d. 4. Lasix 80 mg p.o. daily. Discharge Summary [address] [place]. [address] NAME: PRABHJOT SHELBY : 32 STATUS : DIS IN PAT#: [id number] AGE: 86 ADM/REG DATE : 02/14/17 MR#: [id number] REPORT SERV DATE: 02/19/17 DICTATED BY: YOUSIF COTTO DATE: 02/18/17 REPORT STATUS : Draft TRANSCRIBED BY: BAY DATE: 02/18/17 5. Lidoderm patch left knee daily. 6. Lopressor 12.5 mg p.o. b.i.d. 7. Protonix 40 mg p.o. daily. 8. Potassium 10 mEq Thursday and Thursday. 9. Ambien 2.5 mg p.o. q.h.s. 10.Maidens 5/325 mg p.o. q.8 p.r.n. 11.Tylenol 650 mg q.4 hours p.r.n. 12.Maalox 30 mL p.o. q.4 hours p.r.n. 13.Lactulose 30 mL p.o. q.h.s. x4 days. 14.Ativan 0.5 mg p.o. q.8 p.r.n. 15.Nitroglycerin sublingual 0.4 mg p.r.n. 16.Zofran 4 mg p.o. q.4 hours p.r.n. DISCHARGE DIAGNOSES: 1. Anemia, unknown etiology, status post 4 units of packed RBC as well as 2 FFP secondary to Xarelto. 2. Atrial fibrillation with rapid ventricular response. 3. Back pain. 4. Hypertension. 5. Pulmonary hypertension. 6. Congestive heart failure with preserved ejection fraction of 50%. 7. Chronic kidney disease, stage 3. 8. Chronic debility. 9. Right hip hematoma. FELICIAJ/CASSL Yousif Cotto MD / [id number] CC: Yousif Cotto MD
[~2017-02-14 11:38] MED LIST changes: +8 HOUR650 MG PO; +AMB5 PO; +ATV.5 PO; +BISR PR; +CALTRA600D PO; +CARD60 PO; +CARDCD180 PO; +CONSTULOSE PO; +D.O.S.100 MG PO; +KDUR10 PO; +L80 PO; +LIDODERM TOP; +MAALOX PO; +MOMUD PO; +NITROSTAT0.4 MG SL; +NORCO1 TA1 PO; +PROTONIX PO; +XARELTO15 MG PO; +ZOFRAN4 PO
[2017-02-14] MEDS ORDERED: CALTRA600D PO (11:58)
[2017-02-14] MEDS ORDERED: NORCO1 TA1 PO (11:59)
[2017-02-14] MEDS ORDERED: MAALOX MAX PO (12:00)
[2017-02-14] MEDS ORDERED: CARTIA XT180 MG/24 PO (12:00)
[2017-02-14] MEDS ORDERED: 8 HOUR650 MG PO (12:00)
[2017-02-14] MEDS ORDERED: LIDODERM TOP (12:01)
[2017-02-14] MEDS ORDERED: DSS PO (12:01)
[2017-02-14] MEDS ORDERED: ENULOSE PO (12:01)
[2017-02-14] MEDS ORDERED: L80 PO (12:01)
[2017-02-14] MEDS ORDERED: ATV.5 PO (12:02)
[2017-02-14] MEDS ORDERED: NITROSTAT0.4 MG SL (12:03)
[2017-02-14] MEDS ORDERED: LOP25 PO (12:03)
[2017-02-14] MEDS ORDERED: ZOFRAN4 PO (12:03)
[2017-02-14] MEDS ORDERED: PROTONIX PO (12:03)
[2017-02-14] MEDS ORDERED: K-TABS10 MEQ PO (12:04)
[2017-02-14] MEDS ORDERED: AMB5 PO (12:05)
[2017-02-14] MEDS ORDERED: XARELTO15 MG PO (12:05)
[2017-02-14 12:17] LABS: INTERNATIONAL NORMAL RATI 2.1 UNITS (-); PARTIAL THROMBO TIME 34.8 SEC (22.5-37.2)
[2017-02-14 12:19] LABS: PROTIME (NOT ORD) 23.4 SEC (12.0-14.5)
[2017-02-15 04:37] LABS: HEMOGLOBIN 7.7 g/dL (12.0-16.0)
[2017-02-15 04:39] LABS: HEMATOCRIT 25.3 % (36.0-48.0)
[2017-02-15 04:45] LABS: INTERNATIONAL NORMAL RATI 1.7 UNITS (-)
[2017-02-15 04:46] LABS: HEMATOCRIT 24.9 % (36.0-48.0); HEMOGLOBIN 7.4 g/dL (12.0-16.0); MANUAL DIFF YES %; MEAN CORPUS HGB CONC 29.7 g/dL (32.0-36.0); MEAN CORPUSCULAR HEMOGLOB 24.7 pg (26.0-34.0); MEAN PLATELET VOLUME 11.7 fL (9.2-13.0); NUCLEATED RED BLOOD CELLS 5.1 /100WBC (0-0); PLATELET COUNT 165 10/3/uL (150-400); RBC DISTRIBUTION WIDTH 17.3 % (12.0-16.0); WHITE BLOOD CELLS 5.6 10/3/uL (4.5-10.5)
[2017-02-15 04:47] LABS: PROTIME (NOT ORD) 19.7 SEC (12.0-14.5)
[2017-02-15 04:51] LABS: A/G RATIO 0.8 (0.7-1.9); ALBUMIN 2.8 G/DL (3.5-5.0); ALKALINE PHOSPHATASE 73 U/L (45-117); CALCIUM, SERUM 8.3 MG/DL (8.5-10.4); CHLORIDE, SERUM 106 MMOL/L (96-112); CO2 (CARBON DIOXIDE) 31 MMOL/L (24-34); CREATININE 1.36 MG/DL (0.55-1.02); GFR AFRICAN AMERICAN 41 ML/MIN (>=60); GFR NON AFRICAN AMERICAN 36 ML/MIN (>=60); GLOBULIN 3.3 G/DL (2.5-4.1); GLUCOSE, SERUM 90 MG/DL (60-99); POTASSIUM, SERUM 3.6 MMOL/L (3.5-5.3); SGOT(AST) 33 U/L (5-40); SGPT(ALT) 43 U/L (5-65); SODIUM, SERUM 141 MMOL/L (135-148); TOTAL BILIRUBIN 0.8 MG/DL (0-1.2); TOTAL PROTEIN 6.1 G/DL (6.0-8.5)
[2017-02-15 04:52] LABS: BUN (BLOOD UREA NITROGEN) 44 MG/DL (6-23); PHOSPHORUS, SERUM 2.5 MG/DL (2.5-4.5)
[2017-02-15 05:32] LABS: ANISOCYTOSIS 1+ (5-10/OIF) (0-5/OIF); BAND NEUTROPHILS 7 %; ELLIPTOCYTES 1+ (3-10/OIF) (0-2/OIF); EOSINOPHILS 5 %; EOSINOPHILS ABSOLUTE (CALC) 0.28 10/3/uL (0.0-0.53); HELMET CELLS FEW (3-10/OIF); LYMPHOCYTES 14 %; LYMPHOCYTES ABSOLUTE (CALC) 0.78 10/3/uL (0.67-4.30); MONOCYTES 7 %; MONOCYTES ABSOLUTE (CALC) 0.39 10/3/uL (0.21-1.20); NEUTROPHILS ABSOLUTE (CALC) 4.14 10/3/uL (2.02-8.40); PLATELET ESTIMATE ADQ (ADEQUATE); POIKILOCYTOSIS 1+ (5-10/OIF) (0-5/OIF); POLYCHROMASIA 1+ (2-5/OIF) (0-1/OIF); SEGMENTED NEUTROPHIL (0) 67 %; TOTAL NUCLEATED CELLS 100
[2017-02-15 05:33] LABS: MICROCYTES 1+ (5-10/OIF) (0-5/OIF)
[2017-02-15 10:44] LABS: HEMATOCRIT 27.2 % (36.0-48.0); HEMOGLOBIN 8.4 g/dL (12.0-16.0)
[2017-02-15 17:51] LABS: HEMATOCRIT 28.2 % (36.0-48.0); HEMOGLOBIN 8.7 g/dL (12.0-16.0)
[2017-02-16 02:05] LABS: HEMATOCRIT 28.5 % (36.0-48.0); HEMOGLOBIN 8.7 g/dL (12.0-16.0); MEAN CORPUS HGB CONC 30.5 g/dL (32.0-36.0); MEAN CORPUSCULAR HEMOGLOB 25.4 pg (26.0-34.0); MEAN CORPUSCULAR VOLUME 83.3 fL (80-100); MEAN PLATELET VOLUME 10.3 fL (9.2-13.0); NUCLEATED RED BLOOD CELLS 7.1 /100WBC (0-0); PLATELET COUNT 133 10/3/uL (150-400); RBC DISTRIBUTION WIDTH 17.9 % (12.0-16.0); RED CELL COUNT 3.42 10/6/uL (4.0-5.6); WHITE BLOOD CELLS 5.5 10/3/uL (4.5-10.5)
[2017-02-16 02:08] LABS: MANUAL DIFF YES %
[2017-02-16 02:21] LABS: A/G RATIO 0.8 (0.7-1.9); ALBUMIN 2.7 G/DL (3.5-5.0); BUN (BLOOD UREA NITROGEN) 43 MG/DL (6-23); CALCIUM, SERUM 8.5 MG/DL (8.5-10.4); CHLORIDE, SERUM 106 MMOL/L (96-112); CO2 (CARBON DIOXIDE) 29 MMOL/L (24-34); CREATININE 1.46 MG/DL (0.55-1.02); GFR AFRICAN AMERICAN 38 ML/MIN (>=60); GFR NON AFRICAN AMERICAN 33 ML/MIN (>=60); GLOBULIN 3.2 G/DL (2.5-4.1); GLUCOSE, SERUM 99 MG/DL (60-99); PHOSPHORUS, SERUM 2.7 MG/DL (2.5-4.5); POTASSIUM, SERUM 4.1 MMOL/L (3.5-5.3); SGOT(AST) 28 U/L (5-40); SGPT(ALT) 36 U/L (5-65); SODIUM, SERUM 142 MMOL/L (135-148); TOTAL BILIRUBIN 0.6 MG/DL (0-1.2); TOTAL PROTEIN 5.9 G/DL (6.0-8.5)
[2017-02-16 02:24] LABS: ALKALINE PHOSPHATASE 60 U/L (45-117)
[2017-02-16 02:31] LABS: ANISOCYTOSIS 1+ (5-10/OIF) (0-5/OIF); BAND NEUTROPHILS 8 %; BASOPHILS 5 %; BASOPHILS ABSOLUTE (CALC) 0.28 10/3/uL (0.0-0.16); EOSINOPHILS 3 %; EOSINOPHILS ABSOLUTE (CALC) 0.17 10/3/uL (0.0-0.53); LYMPHOCYTES 15 %; LYMPHOCYTES ABSOLUTE (CALC) 0.83 10/3/uL (0.67-4.30); MONOCYTES 13 %; MONOCYTES ABSOLUTE (CALC) 0.72 10/3/uL (0.21-1.20); NEUTROPHILS ABSOLUTE (CALC) 3.52 10/3/uL (2.02-8.40); PLATELET ESTIMATE SLT DEC (ADEQUATE); RBC MORPHOLOGY ABN (NORMAL); SEGMENTED NEUTROPHIL (0) 56 %; TOTAL NUCLEATED CELLS 100
[2017-02-16 10:36] LABS: HEMATOCRIT 28.7 % (36.0-48.0); HEMOGLOBIN 8.7 g/dL (12.0-16.0)
[2017-02-17 05:39] LABS: A/G RATIO 0.8 (0.7-1.9); ALBUMIN 2.6 G/DL (3.5-5.0); ALKALINE PHOSPHATASE 71 U/L (45-117); BUN (BLOOD UREA NITROGEN) 45 MG/DL (6-23); CALCIUM, SERUM 8.5 MG/DL (8.5-10.4); CHLORIDE, SERUM 104 MMOL/L (96-112); CO2 (CARBON DIOXIDE) 28 MMOL/L (24-34); CREATININE 1.42 MG/DL (0.55-1.02); GFR AFRICAN AMERICAN 39 ML/MIN (>=60); GFR NON AFRICAN AMERICAN 34 ML/MIN (>=60); GLOBULIN 3.4 G/DL (2.5-4.1); GLUCOSE, SERUM 114 MG/DL (60-99); PHOSPHORUS, SERUM 2.7 MG/DL (2.5-4.5); SGOT(AST) 27 U/L (5-40); SGPT(ALT) 32 U/L (5-65); SODIUM, SERUM 141 MMOL/L (135-148); TOTAL BILIRUBIN 0.6 MG/DL (0-1.2)
[2017-02-17 07:39] LABS: BASOPHILS 0.6 %; BASOPHILS ABSOLUTE 0.03 10/3/uL (0.0-0.16); EOSINOPHILS 5.3 %; EOSINOPHILS ABSOLUTE 0.29 10/3/uL (0.0-0.53); HEMATOCRIT 29.7 % (36.0-48.0); HEMOGLOBIN 8.9 g/dL (12.0-16.0); IMMATURE GRANULOCYTES 0.6 %; IMMATURE GRANULOCYTES ABSOLUTE 0.03 10/3/uL (0.0-0.11); LYMPHOCYTES ABSOLUTE 0.76 10/3/uL (0.67-4.30); MEAN CORPUSCULAR HEMOGLOB 25.1 pg (26.0-34.0); MEAN CORPUSCULAR VOLUME 83.7 fL (80-100); MEAN PLATELET VOLUME 11.3 fL (9.2-13.0); MONOCYTES 16.8 %; MONOCYTES ABSOLUTE 0.91 10/3/uL (0.21-1.20); NEUTROPHILS 62.7 %; NEUTROPHILS ABSOLUTE 3.41 10/3/uL (2.02-8.40); NUCLEATED RED BLOOD CELLS 1.9 /100WBC (0-0); PLATELET COUNT 119 10/3/uL (150-400); RBC DISTRIBUTION WIDTH 18.4 % (12.0-16.0); RED CELL COUNT 3.55 10/6/uL (4.0-5.6); WHITE BLOOD CELLS 5.4 10/3/uL (4.5-10.5)
[2017-02-17 07:43] LABS: MANUAL DIFF NO %
[2017-02-17 08:02] LABS: PLATELET ESTIMATE SLT DEC (ADEQUATE)
[2017-02-17 08:03] LABS: ANISOCYTOSIS 1+ (5-10/OIF) (0-5/OIF); POIKILOCYTOSIS 1+ (5-10/OIF) (0-5/OIF); POLYCHROMASIA 1+ (2-5/OIF) (0-1/OIF)
[2017-02-17 08:04] LABS: SCHISTOCYTES OCC (0-2/OIF)
[2017-02-18 05:02] LABS: BASOPHILS 0.2 %; BASOPHILS ABSOLUTE 0.01 10/3/uL (0.0-0.16); EOSINOPHILS 4.1 %; EOSINOPHILS ABSOLUTE 0.27 10/3/uL (0.0-0.53); HEMATOCRIT 28.1 % (36.0-48.0); HEMOGLOBIN 8.5 g/dL (12.0-16.0); IMMATURE GRANULOCYTES 0.5 %; IMMATURE GRANULOCYTES ABSOLUTE 0.03 10/3/uL (0.0-0.11); LYMPHOCYTES 14.4 %; LYMPHOCYTES ABSOLUTE 0.95 10/3/uL (0.67-4.30); MEAN CORPUS HGB CONC 30.2 g/dL (32.0-36.0); MEAN CORPUSCULAR HEMOGLOB 25.4 pg (26.0-34.0); MEAN CORPUSCULAR VOLUME 83.9 fL (80-100); MEAN PLATELET VOLUME 11.5 fL (9.2-13.0); MONOCYTES 15.3 %; MONOCYTES ABSOLUTE 1.01 10/3/uL (0.21-1.20); NEUTROPHILS 65.5 %; NEUTROPHILS ABSOLUTE 4.33 10/3/uL (2.02-8.40); PLATELET COUNT 137 10/3/uL (150-400); RBC DISTRIBUTION WIDTH 18.6 % (12.0-16.0); RED CELL COUNT 3.35 10/6/uL (4.0-5.6); WHITE BLOOD CELLS 6.6 10/3/uL (4.5-10.5)
[2017-02-18 05:06] LABS: ALBUMIN 2.5 G/DL (3.5-5.0); CALCIUM, SERUM 8.3 MG/DL (8.5-10.4); CHLORIDE, SERUM 103 MMOL/L (96-112); CO2 (CARBON DIOXIDE) 28 MMOL/L (24-34); CREATININE 1.16 MG/DL (0.55-1.02); GFR AFRICAN AMERICAN 50 ML/MIN (>=60); GFR NON AFRICAN AMERICAN 43 ML/MIN (>=60); GLUCOSE, SERUM 96 MG/DL (60-99); MANUAL DIFF NO %; PHOSPHORUS, SERUM 2.4 MG/DL (2.5-4.5); POTASSIUM, SERUM 3.7 MMOL/L (3.5-5.3); SODIUM, SERUM 140 MMOL/L (135-148)
[2017-02-18 05:25] LABS: BUN (BLOOD UREA NITROGEN) 37 MG/DL (6-23)
[2017-02-18 06:00] LABS: ANISOCYTOSIS 1+ (5-10/OIF) (0-5/OIF); MACROCYTES 1+ (5-10/OIF) (0-5/OIF); PLATELET ESTIMATE SLT DEC (ADEQUATE); TEARDROP SHAPED RBCS OCC (0-2/OIF)
[2017-02-18 06:01] LABS: ELLIPTOCYTES 1+ (3-10/OIF) (0-2/OIF)
== END 2017-02-18 16:08 | DRG 812 ==
LOC: ER 11:38 → 7NO 14:32
PROVIDERS: Emergency Medicine; Hospitalist
PROC: 30233N1 Transfusion of Nonautologous Red Blood Cells into Peripheral Vein, Percutaneous Approach (ICD-10-PCS; principal; 2017-02-14)
PROC: 30233K1 Transfusion of Nonautologous Frozen Plasma into Peripheral Vein, Percutaneous Approach (ICD-10-PCS; 2017-02-14)
DX: D64.9 Anemia, unspecified (principal); I27.2 Other secondary pulmonary hypertension; I13.0 Hypertensive heart and chronic kidney disease with heart failure and stage 1 through stage 4 chronic kidney disease, or unspecified chronic kidney disease; I50.32 Chronic diastolic (congestive) heart failure; N18.3 Chronic kidney disease, stage 3 (moderate); K44.9 Diaphragmatic hernia without obstruction or gangrene; I48.91 Unspecified atrial fibrillation; M54.9 Dorsalgia, unspecified; W19.XXXA Unspecified fall, initial encounter; Y92.89 Other specified places as the place of occurrence of the external cause; F17.200 Nicotine dependence, unspecified, uncomplicated; S51.812A Laceration without foreign body of left forearm, initial encounter; Z79.891 Long term (current) use of opiate analgesic; Z85.3 Personal history of malignant neoplasm of breast; Z95.5 Presence of coronary angioplasty implant and graft; Z91.040 Latex allergy status; Z88.8 Allergy status to other drugs, medicaments and biological substances; Z79.899 Other long term (current) drug therapy
CPT/HCPCS: 36415; 70450; 71010; 73090-LT; 80048; 80053; 80069; 81001; 82272; 83735; 83880; 84100; 84484; 85014; 85018; 85025; 85610; 85730; 86850; 86900; 86901; 86920; 86922; 93005; 97110-GP; 97116-GP; 97161-GP; 97530-GP; 99285; A9270-GY; G8978-CL-GP; G8979-CL-GP; G8980-CK-GP; J1940; P9016; P9059

== ENCOUNTER 2017-03-06 20:27 | Inpatient (IN) | payer MEDICARE ==
--- NOTE | ~2017-03-06 | HP ---
History And Physical [place] [id number] [facility] [place]. [address] NAME: PRABHJOT SHELBY : 32 STATUS : ADM IN [facility]#: [id number] AGE: 86 ADM/REG DATE : 03/07/17 MR#: [id number] REPORT SERV DATE: 03/07/17 DICTATED BY: BELKYS GALICIA DATE: 03/07/17 REPORT STATUS : Draft TRANSCRIBED BY: MODL DATE: 03/07/17 DATE OF ADMISSION: 03/07/2017 CHIEF COMPLAINT: An 86-year-old female, presenting with lethargy and shortness of breath. HISTORY OF PRESENT ILLNESS: The patient's history was obtained through review of [facility] medical records and review of medical records obtained from [facility]. The patient unable to give a history herself because of lethargy and confusion. The patient was most recently hospitalized between 02/14/2017 and 02/18/2017 and had to go to [facility] for physical strengthening and rehabilitation. Unfortunately, the patient has had difficulty with physical therapy and recovery, but then over the last 24 hours, has had particularly worsening shortness of breath and lethargy and confusion. Unfortunately, the patient has never been and has no children, and we are unable to contact other family members and the patient is unable to give a history herself, and therefore, this is really all we know about her presentation. Apparently, there was no chest pain recently. No pain complaints at all in fact. No change of bowel or bladder habit. No fevers or chills were reported. Otherwise, a history of present illness was unobtainable because of the patient's condition. REVIEW OF SYSTEMS: Otherwise unobtainable because of the patient's condition. PAST MEDICAL HISTORY: 1. Atrial fibrillation. 2. Pneumonia. 3. Congestive heart failure. 4. Hypertension. 5. Chronic kidney disease, stage III. Baseline creatinine of 1.3. 6. GI bleed with colon polyps seen by Dr. Petersen. The patient taken off Xarelto because of recurrent GI bleeds. 7. Anemia. 8. Breast cancer, status post surgery. 9. Recurrent shingles. 10.T11 and L2 compression fractures of the spine. 11.Coronary artery disease, status post stent placement. 12.Right-sided hydronephrosis, seen previously by Dr. Becerra. 13.Thrombocytopenia. 14.Lymphedema. PAST SURGICAL HISTORY: History And Physical [address] [address] NAME: PRABHJOT SHELBY : 32 STATUS : ADM IN [facility]#: [id number] AGE: 86 ADM/REG DATE : 03/07/17 MR#: [id number] REPORT SERV DATE: 03/07/17 DICTATED BY: BELKYS GALICIA DATE: 03/07/17 REPORT STATUS : Draft TRANSCRIBED BY: BAY DATE: 03/07/17 1. Abdominal aortic aneurysm repair in 08/2016. 2. Right hip surgery. 3. Breast cancer surgery. 4. Left knee surgery. ALLERGIES: IV CONTRAST. CODE STATUS: The patient is comfort care. No intubation. No BiPAP. No CPR. SOCIAL HISTORY: The patient has been a smoker and used to drink a nightly liquor up until she became sick. She has been rehabilitating at [facility] but before that lived in [place], [place]. She never . Has no children. 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 FAMILY HISTORY: Mother with uterine cancer. CURRENT MEDICATIONS: Include Tylenol, DuoNeb nebulizers, Maalox, Dulcolax, diclofenac gel, diltiazem extended release 120 mg p.o. daily, hydrocodone p.r.n., Lidoderm patch p.r.n., Ativan p.r.n., Lopressor 12.5 mg p.o. b.i.d., milk of magnesia, nitroglycerin, Zofran, Protonix 40 mg p.o. b.i.d., Zosyn 3.375 g IV q.8, prednisone 10 mg p.o. daily, and sucralfate 1 g p.o. b.i.d. PHYSICAL EXAMINATION: VITAL SIGNS: Temperature 97.6, pulse 122, blood pressure 96/62, respiratory rate 18, and O2 saturation 92% on 8 L nasal cannula. GENERAL: A toxic-appearing female, lethargic but arousable to vocal stimuli but completely disoriented x3. She appears in distress from her shortness of breath. HEENT: Pupils equal, round, and reactive to light. No conjunctival pallor. No scleral icterus. Nares are patent. Oropharynx is clear of obstruction. The patient does have dry mucous membranes. NECK: Trachea midline. No thyromegaly. LYMPH: No cervical lymphadenopathy. No supraclavicular lymphadenopathy. RESPIRATORY: The patient has diminished breath sounds at the base of each lung but diffuse wet rales as well. No rhonchi. No wheezes. The patient has a quite labored respiratory effort. CARDIOVASCULAR: Tachycardic, irregularly irregular. No murmurs, rubs, or gallops. No current extremity edema is appreciated. ABDOMEN: Tight by examination, seems to be distention with some tympanic resonance. Tender throughout. No guarding, no rebound though, nonfocal, no hepatosplenomegaly. DERMATOLOGICAL: Warm and dry extremities. No pallor. No cyanosis. PSYCHIATRIC: Flat affect. Irritable mood. She is very lethargic, but arousable to persistent vocal stimuli. Disoriented to time, location, and a recent history. LABORATORY DATA: White blood cell count 12.5, hemoglobin 10, hematocrit 36, and platelets 145. Sodium 139, potassium 5.2, chloride 109, bicarb 21, BUN 81, creatinine 3.16 from baseline creatinine of 1.3, glucose 110, AST 86, ALT 71, alkaline phosphatase 109, and total bilirubin 2.1. History And Physical [address] [address] NAME: PRABHJOT SHELBY : 32 STATUS : ADM IN [facility]#: [id number] AGE: 86 ADM/REG DATE : 03/07/17 MR#: [id number] REPORT SERV DATE: 03/07/17 DICTATED BY: BELKYS GALICIA DATE: 03/07/17 REPORT STATUS : Draft TRANSCRIBED BY: MODSebastian DATE: 03/07/17 STUDIES: Chest x-ray by my own evaluation shows bilateral pleural effusions, but the right pleural effusion is significantly larger than the left taking up perhaps half to three- quarter of the lung field. ASSESSMENT AND PLAN: 1. Hypoxic respiratory failure with infiltrates and pleural effusions. Obtain an ultrasound-guided thoracentesis for attempted therapeutic and diagnostic purposes. Unfortunately, four separate respiratory therapists in the emergency department attempted to obtain an ABG without success. We will try to IV fluid resuscitate patient and see if we have better luck later in the morning of 03/07/2017. 2. Pleural effusion. We will try an ultrasound-guided thoracentesis for therapeutic and diagnostic purposes. 3. Acute renal failure. Place on IV fluids, IV albumin. Carey catheter. Hold diuretic. 4. Rapid atrial fibrillation. Place on Cardizem drip IV, fluid resuscitate, check telemetry. The patient is not on anticoagulation secondary to GI bleeds. 5. Urinary tract infection. Check urine culture. Place on IV antibiotics. 6. DNR, comfort measures. Really, if the patient has no improvement with the current supportive measures, I wonder if we should consider hospice care or palliative care (?). KPL/MODL Belkys Galicia M.D. / [id number] CC: Christos Gutierrez MD
--- NOTE | ~2017-03-06 | DS ---
Discharge Summary [facility] [address] [place]. [address] NAME: PRABHJOT SHELBY : 32 STATUS : ADM IN [facility]#: [id number] AGE: 86 ADM/REG DATE : 03/07/17 MR#: [id number] REPORT SERV DATE: 03/09/17 DICTATED BY: JOSÉ MIGUEL TOBAR DATE: 03/09/17 REPORT STATUS : Draft TRANSCRIBED BY: MODL DATE: 03/09/17 ADMISSION DATE: 03/07/2017 DISCHARGE DATE: 03/08/2017 DISCHARGE DISPOSITION: to [facility]. DISCHARGE DIAGNOSES: 1. Acute hypoxic respiratory failure. 2. Pleural effusion. 3. Acute kidney injury. 4. Rapid atrial fibrillation. 5. Urinary tract infection Escherichia coli, present on arrival. 6. Escherichia coli bacteremia, present on arrival. 7. Sepsis, present on arrival. 8. Multiorgan failure with liver, renal, cardiac, neurologic, skin coagulation, and vascular compromise. 9. Acute congestive heart failure, present on arrival. 10.Type 2 demand ischemia. 11.Prior tobacco use history. 12.Prior history of cancer, breast. 13.Chronic kidney disease stage 3. 14.Coronary artery disease with prior stent. 15.Multilevel spinal fracture history. 16.Thrombocytopenia. 17.Lymphedema. 18.History of abdominal aortic aneurysm with repair in 2016. HOSPITAL COURSE: Please see H and P for complete details of HPI. Briefly, Ms. Shelby was 86-year-old female with complex past medical history as outlined above, who presented after having been in [facility] with continued clinical decline. The patient reported that she had stopped taking her Lasix at that time due to having to urinate, was noted to have significant amount of pleural effusion on lung exam with acute hypoxic respiratory failure on admission. Subsequently, the patient also was in renal failure, had type 2 demand ischemia, liver elevations and cooling, mottling of skin. There was also noted to be sepsis preliminary from E coli and bacteremia, was initiated on broad- spectrum antibiotics. The patient was to undergo thoracentesis, however, due to coag abnormalities with INR elevated, although not being on anticoagulation, procedure was postponed. The patient was tried to have reversal of coag factors with no success. The patient continued to express as well as expressed by patient's niece, her desire to be comfort measures. On day of 03/08/2017, the patient began to start showing signs of encephalopathy with mental slowing, had increased hypoxia, and decreased core temperature. Conservative measures with Renetta Hugger and IV medications were continued. Family was updated. However, continued multiorgan failure progressed until ultimate demise. The patient was pronounced at 11:41 p.m. with family at bedside. The patient went peacefully as she had requested and expressed to her family prior to this admission. Discharge Summary [address] [address] NAME: PRABHJOT SHELBY : 32 STATUS : ADM IN PAT#: [id number] AGE: 86 ADM/REG DATE : 03/07/17 MR#: [id number] REPORT SERV DATE: 03/09/17 DICTATED BY: JOSÉ MIGUEL TOBAR DATE: 03/09/17 REPORT STATUS : Draft TRANSCRIBED BY: BAY DATE: 03/09/17 DICTATED BY: MD OBDULIO Arias/BAY José Miguel Tobar MD / [id number] CC: José Miguel Tobar MD
[~2017-03-06 20:27] MED LIST changes: +DSS PO; +ENULOSE PO; +K-TABS10 MEQ PO; +LOP25 PO; +MAALOX MAX PO
[2017-03-06] MEDS ORDERED: DUONEB INH ×2 (21:42→21:52)
[2017-03-06] MEDS ORDERED: D.O.S.100 MG PO (21:43)
[2017-03-06] MEDS ORDERED: CARDCD120 PO (21:43)
[2017-03-06] MEDS ORDERED: LIDODERM TOP (21:44)
[2017-03-06] MEDS ORDERED: LOP25 PO (21:45)
[2017-03-06] MEDS ORDERED: PROTONIX PO (21:46)
[2017-03-06] MEDS ORDERED: ZOSYN375 IV (21:47)
[2017-03-06] MEDS ORDERED: SUCR PO (21:48)
[2017-03-06] MEDS ORDERED: P10 PO (21:48)
[2017-03-06] MEDS ORDERED: T PO (21:49)
[2017-03-06] MEDS ORDERED: NORCO1 TA1 PO (21:51)
[2017-03-06] MEDS ORDERED: MAALOX PO (21:52)
[2017-03-06] MEDS ORDERED: BISR PR (21:53)
[2017-03-06] MEDS ORDERED: MOMUD PO (21:54)
[2017-03-06] MEDS ORDERED: VOLTAREN1 % TOP (21:54)
[2017-03-06] MEDS ORDERED: ATV.5 PO (21:54)
[2017-03-06] MEDS ORDERED: NITROSTAT0.4 MG SL (21:55)
[2017-03-06] MEDS ORDERED: ZOFRAN4 PO (21:55)
[2017-03-06] MEDS ORDERED: PHENYLEPHRINE PR (21:57)
[2017-03-06 22:44] LABS: BASOPHILS 0.2 %; BASOPHILS ABSOLUTE 0.02 10/3/uL (0.0-0.16); EOSINOPHILS 0.2 %; EOSINOPHILS ABSOLUTE 0.02 10/3/uL (0.0-0.53); ER CBC TAT 0 Hrs 11 Mins; HEMATOCRIT 35.9 % (36.0-48.0); HEMOGLOBIN 10.3 g/dL (12.0-16.0); IMMATURE GRANULOCYTES 0.5 %; LYMPHOCYTES 2.4 %; MEAN CORPUS HGB CONC 28.7 g/dL (32.0-36.0); MEAN CORPUSCULAR HEMOGLOB 24.7 pg (26.0-34.0); MEAN CORPUSCULAR VOLUME 86.1 fL (80-100); MONOCYTES 7.5 %; MONOCYTES ABSOLUTE 0.94 10/3/uL (0.21-1.20); NEUTROPHILS 89.2 %; NEUTROPHILS ABSOLUTE 11.17 10/3/uL (2.02-8.40); NUCLEATED RED BLOOD CELLS 6.6 /100WBC (0-0); PLATELET COUNT 145 10/3/uL (150-400); RBC DISTRIBUTION WIDTH 20.3 % (12.0-16.0); RED CELL COUNT 4.17 10/6/uL (4.0-5.6); WHITE BLOOD CELLS 12.5 10/3/uL (4.5-10.5)
[2017-03-06 22:48] LABS: IMMATURE GRANULOCYTES ABSOLUTE 0.06 10/3/uL (0.0-0.11); MANUAL DIFF NO %
[2017-03-06 22:56] LABS: A/G RATIO 0.8 (0.7-1.9); ALBUMIN 2.8 G/DL (3.5-5.0); ALKALINE PHOSPHATASE 109 U/L (45-117); BUN (BLOOD UREA NITROGEN) 81 MG/DL (6-23); CALCIUM, SERUM 7.9 MG/DL (8.5-10.4); CHLORIDE, SERUM 109 MMOL/L (96-112); CO2 (CARBON DIOXIDE) 21 MMOL/L (24-34); CREATININE 3.16 MG/DL (0.55-1.02); GFR AFRICAN AMERICAN 15 ML/MIN (>=60); GFR NON AFRICAN AMERICAN 13 ML/MIN (>=60); GLOBULIN 3.6 G/DL (2.5-4.1); GLUCOSE, SERUM 110 MG/DL (60-99); POTASSIUM, SERUM 5.2 MMOL/L (3.5-5.3); SGOT(AST) 86 U/L (5-40); SGPT(ALT) 71 U/L (5-65); SODIUM, SERUM 139 MMOL/L (135-148); TOTAL BILIRUBIN 2.1 MG/DL (0-1.2); TOTAL PROTEIN 6.4 G/DL (6.0-8.5)
[2017-03-06 23:16] LABS: BAND NEUTROPHILS 8 %; ER DIFF TAT 0 Hrs 43 Mins; IMMATURE GRANS ABSOLUTE (CALC) 0.38 10/3/uL (0.0-0.11); METAMYELOCYTES 3 %; NEUTROPHILS ABSOLUTE (CALC) 12.13 10/3/uL (2.02-8.40); SEGMENTED NEUTROPHIL (0) 89 %; TOTAL NUCLEATED CELLS 100
[2017-03-06 23:17] LABS: PLATELET ESTIMATE ADQ (ADEQUATE); POLYCHROMASIA 1+ (2-5/OIF) (0-1/OIF); TEARDROP SHAPED RBCS OCC (0-2/OIF)
[2017-03-06 23:18] LABS: ACANTHOCYTES OCC (0-2/OIF); HYPOCHROMIA 1+ (3-10/OIF) (0-2/OIF)
[2017-03-07 04:55] LABS: INTERNATIONAL NORMAL RATI 1.9 UNITS (-); PARTIAL THROMBO TIME 34.9 SEC (22.5-37.2); PROTIME (NOT ORD) 21.4 SEC (12.0-14.5)
[2017-03-07 05:16] LABS: ALBUMIN 3.2 G/DL (3.5-5.0); BUN (BLOOD UREA NITROGEN) 84 MG/DL (6-23); CHLORIDE, SERUM 109 MMOL/L (96-112); CK-MB 5.5 NG/ML; CO2 (CARBON DIOXIDE) 22 MMOL/L (24-34); CPK 29 U/L (0-200); CREATININE 3.06 MG/DL (0.55-1.02); GFR AFRICAN AMERICAN 15 ML/MIN (>=60); GFR NON AFRICAN AMERICAN 13 ML/MIN (>=60); GLOBULIN 3.3 G/DL (2.5-4.1); GLUCOSE, SERUM 124 MG/DL (60-99); POTASSIUM, SERUM 4.8 MMOL/L (3.5-5.3); SGOT(AST) 81 U/L (5-40); SGPT(ALT) 75 U/L (5-65); SODIUM, SERUM 139 MMOL/L (135-148); TOTAL PROTEIN 6.5 G/DL (6.0-8.5)
[2017-03-07 05:17] LABS: ALKALINE PHOSPHATASE 94 U/L (45-117); TOTAL BILIRUBIN 1.5 MG/DL (0-1.2); TROPONIN I 0.16 NG/ML (<0.05)
[2017-03-07 06:14] LABS: PROCALCITONIN 1.37 ng/mL (<0.5)
[2017-03-07 08:50] LABS: BASOPHILS 0.1 %; BASOPHILS ABSOLUTE 0.02 10/3/uL (0.0-0.16); EOSINOPHILS 0.1 %; EOSINOPHILS ABSOLUTE 0.01 10/3/uL (0.0-0.53); HEMATOCRIT 33.6 % (36.0-48.0); HEMOGLOBIN 9.3 g/dL (12.0-16.0); IMMATURE GRANULOCYTES 0.4 %; IMMATURE GRANULOCYTES ABSOLUTE 0.06 10/3/uL (0.0-0.11); LYMPHOCYTES 1.6 %; LYMPHOCYTES ABSOLUTE 0.25 10/3/uL (0.67-4.30); MANUAL DIFF NO %; MEAN CORPUS HGB CONC 27.7 g/dL (32.0-36.0); MEAN CORPUSCULAR HEMOGLOB 24.1 pg (26.0-34.0); MONOCYTES 8.4 %; MONOCYTES ABSOLUTE 1.32 10/3/uL (0.21-1.20); NEUTROPHILS 89.4 %; NEUTROPHILS ABSOLUTE 14.02 10/3/uL (2.02-8.40); NUCLEATED RED BLOOD CELLS 3.7 /100WBC (0-0); PLATELET COUNT 133 10/3/uL (150-400); RBC DISTRIBUTION WIDTH 20.4 % (12.0-16.0); RED CELL COUNT 3.86 10/6/uL (4.0-5.6); WHITE BLOOD CELLS 15.7 10/3/uL (4.5-10.5)
[2017-03-07 09:24] LABS: ANISOCYTOSIS 1+ (5-10/OIF) (0-5/OIF); HYPOCHROMIA 1+ (3-10/OIF) (0-2/OIF); PLATELET ESTIMATE SLT DEC (ADEQUATE)
[2017-03-08 08:59] LABS: INTERNATIONAL NORMAL RATI 1.9 UNITS (-); PROTIME (NOT ORD) 21.8 SEC (12.0-14.5)
[2017-03-08 09:11] LABS: ALBUMIN 3.3 G/DL (3.5-5.0); ALKALINE PHOSPHATASE 86 U/L (45-117); BUN (BLOOD UREA NITROGEN) 80 MG/DL (6-23); CALCIUM, SERUM 8.1 MG/DL (8.5-10.4); CHLORIDE, SERUM 111 MMOL/L (96-112); CO2 (CARBON DIOXIDE) 19 MMOL/L (24-34); CREATININE 3.38 MG/DL (0.55-1.02); GFR AFRICAN AMERICAN 14 ML/MIN (>=60); GFR NON AFRICAN AMERICAN 12 ML/MIN (>=60); GLOBULIN 3.3 G/DL (2.5-4.1); GLUCOSE, SERUM 123 MG/DL (60-99); HEMOGLOBIN 9.6 g/dL (12.0-16.0); MEAN CORPUS HGB CONC 27.4 g/dL (32.0-36.0); MEAN CORPUSCULAR HEMOGLOB 24.3 pg (26.0-34.0); MEAN CORPUSCULAR VOLUME 88.6 fL (80-100); NUCLEATED RED BLOOD CELLS 9.5 /100WBC (0-0); PLATELET COUNT 159 10/3/uL (150-400); RED CELL COUNT 3.95 10/6/uL (4.0-5.6); SGOT(AST) 75 U/L (5-40); SGPT(ALT) 82 U/L (5-65); SODIUM, SERUM 137 MMOL/L (135-148); TOTAL BILIRUBIN 1.5 MG/DL (0-1.2); TOTAL PROTEIN 6.6 G/DL (6.0-8.5); WHITE BLOOD CELLS 10.6 10/3/uL (4.5-10.5)
[2017-03-08 09:17] LABS: MANUAL DIFF YES %
[2017-03-08 09:37] LABS: ANISOCYTOSIS 1+ (5-10/OIF) (0-5/OIF); BAND NEUTROPHILS 10 %; HYPOCHROMIA 1+ (3-10/OIF) (0-2/OIF); IMMATURE GRANS ABSOLUTE (CALC) 0.11 10/3/uL (0.0-0.11); LYMPHOCYTES 3 %; LYMPHOCYTES ABSOLUTE (CALC) 0.32 10/3/uL (0.67-4.30); METAMYELOCYTES 1 %; MONOCYTES 5 %; MONOCYTES ABSOLUTE (CALC) 0.53 10/3/uL (0.21-1.20); NEUTROPHILS ABSOLUTE (CALC) 9.65 10/3/uL (2.02-8.40); PLATELET ESTIMATE ADQ (ADEQUATE); SEGMENTED NEUTROPHIL (0) 81 %; TOTAL NUCLEATED CELLS 100
[2017-03-08 09:38] LABS: SCHISTOCYTES OCC (0-2/OIF)
[2017-03-08 09:41] LABS: POLYCHROMASIA 1+ (2-5/OIF) (0-1/OIF)
== END 2017-03-08 23:49 | disposition expired | DRG 871 ==
LOC: ER 20:27 → 2SO 03-07 00:07
PROVIDERS: Emergency Medicine; Hospitalist; Student in an Organized Health Care Education/Training Program
DX: A41.51 Sepsis due to Escherichia coli [E. coli] (principal); J96.01 Acute respiratory failure with hypoxia; J90 Pleural effusion, not elsewhere classified; N17.9 Acute kidney failure, unspecified; I24.8 Other forms of acute ischemic heart disease; D69.6 Thrombocytopenia, unspecified; I48.91 Unspecified atrial fibrillation; I50.9 Heart failure, unspecified; I13.0 Hypertensive heart and chronic kidney disease with heart failure and stage 1 through stage 4 chronic kidney disease, or unspecified chronic kidney disease; N18.3 Chronic kidney disease, stage 3 (moderate); N39.0 Urinary tract infection, site not specified; Z66 Do not resuscitate; R65.20 Severe sepsis without septic shock; D64.9 Anemia, unspecified; I25.10 Atherosclerotic heart disease of native coronary artery without angina pectoris; R00.0 Tachycardia, unspecified; B96.20 Unspecified Escherichia coli [E. coli] as the cause of diseases classified elsewhere; A41.9 Sepsis, unspecified organism; K72.90 Hepatic failure, unspecified without coma; I89.0 Lymphedema, not elsewhere classified; Z85.3 Personal history of malignant neoplasm of breast; Z95.5 Presence of coronary angioplasty implant and graft; Z80.8 Family history of malignant neoplasm of other organs or systems; Z86.010 Personal history of colon polyps; Z91.041 Radiographic dye allergy status; Z98.890 Other specified postprocedural states
CPT/HCPCS: 32555; 36600; 71010; 80053; 80202; 82550; 82553; 83605; 83735; 83880; 84145; 84443; 84484; 85025; 85610; 85730; 87040; 87070; 87205; 94640; 96374; 99285; A9270-GY; J1720; J2543; J3370; J3430; P9045; P9047